=== PATIENT | female | born 1990 | race Caucasian/White ===

== ENCOUNTER 2019-01-22 02:03 | Emergency (ER) | payer BC, OTHER ==
[~2019-01-22] VITALS: Ht 167.6 cm; Wt 56.7 kg
--- NOTE | 2019-01-22 02:27 | ED General ---
General Chief Complaint: Overdose Stated Complaint: OVER DOSE History of Present Illness Date Seen by Provider: Jan 22, 2019 Time Seen by Provider: 02:21 Initial Comments Patient presents emergency department for evaluation of overdose of Tylenol and Benadryl. She said that she was in an argument with her and wanted to go to sleep so she took both medications at 1:30 in the morning. She says that it was 15 Tylenol tablets that she does not know dose of in addition to 15 Benadryl tablets that she does not know the dose to either. These are approximate amounts that she said it was a handful. I asked her if she did this in an attempt to kill herself and she said no she simply wanted to go to sleep. Asked her if she has hurt herself before in the past and had suicide attempts and she said no but she did used to cut. She takes an antidepressant sertraline in addition to control but did not take these medications and she also denies taking any alcohol or drugs. Her vital signs are normal and she is in no obvious distress. (KOURTNEY BORGES DO) Allergies and Home Medications Allergies Coded Allergies: No Known Drug Allergies (Unverified , 01/22/19) Patient Home Medication List Home Medication List Reviewed: Yes (KOURTNEY BORGES DO) Review of Systems Review of Systems Constitutional: No fever EENTM: No blurred vision Respiratory: No short of breath Cardiovascular: No chest pain Gastrointestinal: No nausea, No vomiting Musculoskeletal: No joint pain Skin: No rash Psychiatric/Neurological: Denies Headache, Denies Numbness (KOURTNEY BORGES DO) All Other Systems Reviewed Negative Unless Noted: Yes (KOURTNEY BORGES DO) Past Pjiuryo-Gmcitx-Neweyk Hx Patient Social History Recent Foreign Travel: No Contact w/Someone Who Travel: No (KOURTNEY BORGES DO) Physical Exam Vital Signs Vital Signs - First Documented 01/22/19 02:14 Temp 97.9 Pulse 98 Resp 16 B/P (MAP) 107/66 (80) O2 Delivery Room Air (ANA CORONEL DO) Vital Signs Capillary Refill : (KOURTNEY BORGES DO) Height, Weight, BMI Height: '" Weight: lbs. oz. kg; BMI Method: General Appearance: No Apparent Distress, WD/WN HEENT: PERRL/EOMI, TMs Normal Neck: Supple Respiratory: Normal Breath Sounds, No Respiratory Distress Cardiovascular: Regular Rate, Rhythm, No Edema Gastrointestinal: Non Tender, Soft Back: Normal Inspection Extremity: Normal Capillary Refill, Normal Inspection Neurologic/Psychiatric: Alert, Oriented x3 Skin: Normal Color, Warm/Dry (KOURTNEY BORGES DO) Progress/Results/Core Measures Suspected Sepsis SIRS Temperature: Pulse: Respiratory Rate: Laboratory Tests 01/22/19 02:24: White Blood Count 4.7 Blood Pressure / Mean: Laboratory Tests 01/22/19 02:24: Creatinine 0.83, Platelet Count 158, Total Bilirubin 0.2 01/22/19 05:25: (KOURTNEY BORGES [facility]) Results/Orders Lab Results Laboratory Tests Test 01/22/19 02:24 01/22/19 03:15 01/22/19 05:25 Range/Units White Blood Count 4.7 4.3-11.0 10^3/uL Red Blood Count 4.06 L 4.35-5.85 10^6/uL Hemoglobin 11.9 11.5-16.0 G/DL Hematocrit 37 35-52 % Mean Corpuscular Volume 91 80-99 FL Mean Corpuscular Hemoglobin 29 25-34 PG Mean Corpuscular Hemoglobin Concent 32 32-36 G/DL Red Cell Distribution Width 12.9 10.0-14.5 % Platelet Count 158 130-400 10^3/uL Mean Platelet Volume 10.2 7.4-10.4 FL Neutrophils (%) (Auto) 40 L 42-75 % Lymphocytes (%) (Auto) 51 H 12-44 % Monocytes (%) (Auto) 8 0-12 % Eosinophils (%) (Auto) 1 0-10 % Basophils (%) (Auto) 0 0-10 % Neutrophils # (Auto) 1.9 1.8-7.8 X 10^3 Lymphocytes # (Auto) 2.4 1.0-4.0 X 10^3 Monocytes # (Auto) 0.4 0.0-1.0 X 10^3 Eosinophils # (Auto) 0.1 0.0-0.3 10^3/uL Basophils # (Auto) 0.0 0.0-0.1 10^3/uL Sodium Level 140 141 135-145 MMOL/L Potassium Level 3.5 L 3.9 3.6-5.0 MMOL/L Chloride Level 101 108 H 98-107 MMOL/L Carbon Dioxide Level 21 18 L 21-32 MMOL/L Anion Gap 18 H 15 H 5-14 MMOL/L Blood Urea Nitrogen 14 10 7-18 MG/DL Creatinine 0.83 0.70 0.60-1.30 MG/DL Estimat Glomerular Filtration Rate > 60 > 60 BUN/Creatinine Ratio 17 14 Glucose Level 102 75 70-105 MG/DL Calcium Level 9.6 7.8 L 8.5-10.1 MG/DL Corrected Calcium 8.0 L 8.5-10.1 MG/DL Magnesium Level 1.9 1.8-2.4 MG/DL Total Bilirubin 0.2 < 0.2 0.1-1.0 MG/DL Aspartate Amino Transf (AST/SGOT) 13 10 5-34 U/L Alanine Aminotransferase (ALT/SGPT) 11 9 0-55 U/L Alkaline Phosphatase 26 L 21 L 40-136 U/L Total Protein 7.7 6.1 L 6.4-8.2 GM/DL Albumin 4.6 H 3.7 3.2-4.5 GM/DL Salicylates Level < 0.3 L 5.0-20.0 MG/DL Acetaminophen Level 71 *H 48 #*H 10-30 UG/ML Serum Alcohol < 10 <10 MG/DL Urine Color YELLOW Urine Clarity CLEAR Urine pH 6.0 5-9 Urine Specific Beverly 1.025 H 1.016-1.022 Urine Protein NEGATIVE NEGATIVE Urine Glucose (UA) NEGATIVE NEGATIVE Urine Ketones NEGATIVE NEGATIVE Urine Nitrite NEGATIVE NEGATIVE Urine Bilirubin NEGATIVE NEGATIVE Urine Urobilinogen 0.2 NORMAL MG/DL Urine Leukocyte Esterase NEGATIVE NEGATIVE Urine RBC (Auto) NEGATIVE NEGATIVE Urine RBC NONE /HPF Urine WBC 0-2 /HPF Urine Squamous Epithelial Cells 5-10 /HPF Urine Crystals NONE /LPF Urine Bacteria TRACE /HPF Urine Casts NONE /LPF Urine Mucus NONE /LPF Urine Culture Indicated NO Urine Test NEGATIVE NEGATIVE Urine Opiates Screen NEGATIVE NEGATIVE Urine Oxycodone Screen NEGATIVE NEGATIVE Urine Methadone Screen NEGATIVE NEGATIVE Urine Propoxyphene Screen NEGATIVE NEGATIVE Urine Barbiturates Screen NEGATIVE NEGATIVE Ur Tricyclic Antidepressants Screen NEGATIVE NEGATIVE Urine Phencyclidine Screen NEGATIVE NEGATIVE Urine Amphetamines Screen NEGATIVE NEGATIVE Urine Methamphetamines Screen NEGATIVE NEGATIVE Urine Benzodiazepines Screen NEGATIVE NEGATIVE Urine Cocaine Screen NEGATIVE NEGATIVE Urine Cannabinoids Screen NEGATIVE NEGATIVE (ANA CORONEL DO) Medications Given in ED Current Medications Medications Dose Ordered Sig/Roderick Route Start Time Stop Time Status Last Admin Dose Admin Charcoal 50 gm ONCE ONCE PO 01/22/19 02:30 01/22/19 02:31 DC 01/22/19 02:40 50 GM Ondansetron HCl 4 mg ONCE ONCE IVP 01/22/19 02:30 01/22/19 02:31 DC 01/22/19 02:40 4 MG Potassium Chloride 20 meq ONCE ONCE PO 01/22/19 03:15 01/22/19 03:16 DC 01/22/19 03:05 20 MEQ Sodium Chloride 1,000 ml ONCE ONCE IV 01/22/19 02:30 01/22/19 02:31 DC 01/22/19 02:40 1,000 ML Sodium Chloride 1,000 ml ONCE ONCE IV 01/22/19 03:00 01/22/19 03:01 DC 01/22/19 03:38 1,000 ML (ANA CORONEL DO) Vital Signs/I&O 01/22/19 02:14 Temp 97.9 Pulse 98 Resp 16 B/P (MAP) 107/66 (80) O2 Delivery Room Air (ANA CORONEL DO) Vital Signs/I&O Capillary Refill : (KOURTNEY BORGES DO) Progress Note : Time: 02:24 Progress Note I spoke to poison control and they recommended benzos for possible anticholinergic side affects and repeat Tylenol level at 4 hours. Patient is within 1 hour of ingestion so she will be given activated charcoal. 0600: Awaiting repeat tylenol and cmp. If negative patient will be considered medically cleared from my standpoint as she has had no symptoms over her 3+ hours here and her VS have not changed. No s/s of anticholinergic toxicity. Patient will need psych screen if she does not require admit for tylenol OD. Transfer of care to Dr. Coronel at 0600, awaiting lab results. Tylenol level at 48 so she is medically cleared. Psych will screen her now. (KOURTNEY BORGES DO) Progress Note : Progress Note Davis addendum: Mani from [facility] recommends pt can be cleared for outpatient followup since she does not want to harm herself and she has followup with that group already set up. Pt would like to go home and feels well. (ANA CORONEL DO) Departure Impression Primary Impression: Drug overdose Disposition: 01 HOME, SELF-CARE Condition: Stable Departure-Patient Inst. Referrals: NO,LOCAL PHYSICIAN (PCP/Family) Primary Care Physician Patient Instructions: ALCOHOL AND SUBSTANCE ABUSE, Accidental Overdose KOURTNEY BORGES DO Jan 22, 2019 02:27 ANA CORONEL DO Jan 22, 2019 07:35
[2019-01-22 02:30] LABS: WHITE BLOOD COUNT 4.7 10^3/uL (4.3-11.0)
[2019-01-22] MEDS ORDERED: ONDANSETRON 4 MG/2 ML (SDV) Z0FRAN IVP ONE (02:30)
[2019-01-22] MEDS ORDERED: NS 1000 ML IV BAG IV ONE ×2 (02:30→03:00)
[2019-01-22] MEDS ORDERED: CHARCOAL/AQUEOUS 50 GM/240 ML BTL PO ONE (02:30)
[2019-01-22 02:31] LABS: BASOPHILS % (AUTO) 0 % (0-10); EOSINOPHILS % (AUTO) 1 % (0-10); HEMATOCRIT 37 % (35-52); HEMOGLOBIN 11.9 G/DL (11.5-16.0); LYMPHOCYTES % (AUTO) 51 % (12-44); MEAN CORPUSCULAR HEMOGLOBIN 29 PG (25-34); MEAN CORPUSCULAR HGB CONC 32 G/DL (32-36); MEAN CORPUSCULAR VOLUME 91 FL (80-99); MEAN PLATELET VOLUME 10.2 FL (7.4-10.4); MONOCYTES % (AUTO) 8 % (0-12); NEUTROPHILS % (AUTO) 40 % (42-75); PLATELET COUNT 158 10^3/uL (130-400); RED CELL DISTRIBUTION WIDTH 12.9 % (10.0-14.5)
[2019-01-22 02:32] LABS: EOSINOPHILS # (AUTO) 0.1 10^3/uL (0.0-0.3); LYMPHOCYTES # (AUTO) 2.4 X 10^3 (1.0-4.0); MONOCYTES # (AUTO) 0.4 X 10^3 (0.0-1.0); NEUTROPHILS # (AUTO) 1.9 X 10^3 (1.8-7.8)
--- NOTE | 2019-01-22 02:51 | NUR ---
PT. REPORTED THAT SHE TOOK APPROX. 15 BENADRYL UNKNOWN DOSE AND 15 TYLENOL UNKNOWN DOSE BECAUSE SHE HAS ALLERGYS AND HAD TAKEN A DOSE OF BENADRYL PRIOR TO GOING TO BED SHE ALSO HAD TAKEN TYLENOL BUT THEN SHE AND HER STARTED FIGHTING SO THE BENADRYL AND TYLENOL WAS NOT WORKING SO SHE TOOK SOME MORE AND BY THE 3RD TIME OF TAKING THE TYLENOL AND THE BENADRYL IT WAS NOT WORKING. PATIENT REPORTED THAT SHE WAS NOT ATTEMPTING TO KILL HERSELF SHE WAS JUST TRYING TO GET SOME SLEEP.
[2019-01-22 02:54] LABS: CARBON DIOXIDE 21 MMOL/L (21-32); CHLORIDE 101 MMOL/L (98-107); POTASSIUM 3.5 MMOL/L (3.6-5.0); SODIUM 140 MMOL/L (135-145)
[2019-01-22 02:55] LABS: ALANINE AMINOTRANSFERASE 11 U/L (0-55); ALBUMIN 4.6 GM/DL (3.2-4.5); ALKALINE PHOSPHATASE 26 U/L (40-136); BILIRUBIN,TOTAL 0.2 MG/DL (0.1-1.0); BUN/CREATININE RATIO 17; CALCIUM 9.6 MG/DL (8.5-10.1); CREATININE SERUM 0.83 MG/DL (0.60-1.30); GFR ESTIMATED > 60; GLUCOSE 102 MG/DL (70-105); MAGNESIUM 1.9 MG/DL (1.8-2.4); SALICYLATE < 0.3 MG/DL (5.0-20.0); TOTAL PROTEIN 7.7 GM/DL (6.4-8.2)
[2019-01-22 02:57] LABS: ACETAMINOPHEN 71 UG/ML (10-30)
[2019-01-22] MEDS ORDERED: KCL 20 MEQ TAB (K-DUR) PO ONE (03:15)
[2019-01-22 03:28] LABS: HCG,QUALITATIVE URINE NEGATIVE (NEGATIVE)
--- NOTE | 2019-01-22 03:31 | NUR ---
IS AT THE BEDSIDE.
[2019-01-22 03:34] LABS: BILIRUBIN,URINE NEGATIVE (NEGATIVE); CLARITY,URINE CLEAR; COLOR,URINE YELLOW; GLUCOSE, URINE (UA) NEGATIVE (NEGATIVE); KETONES,URINE NEGATIVE (NEGATIVE); LEUKOCYTE ESTERASE ,URINE NEGATIVE (NEGATIVE); NITRITE,URINE NEGATIVE (NEGATIVE); PROTEIN,URINE NEGATIVE (NEGATIVE); UROBILINOGEN,URINE 0.2 MG/DL (NORMAL)
[2019-01-22 03:35] LABS: BACTERIA,URINE TRACE /HPF; WBC,URINE 0-2 /HPF
[2019-01-22 03:37] LABS: AMPHETAMINE SCREEN, URINE NEGATIVE (NEGATIVE); BARBITURATE SCREEN URINE NEGATIVE (NEGATIVE); BENZODIAZEPINES SCREEN URINE NEGATIVE (NEGATIVE); CANNABINOID SCREEN, URINE NEGATIVE (NEGATIVE); COCAINE SCREEN URINE NEGATIVE (NEGATIVE); METHADONE STAT NEGATIVE (NEGATIVE); METHAMPHETAMINE SCREEN URINE S NEGATIVE (NEGATIVE); OPIATE SCREEN URINE NEGATIVE (NEGATIVE); OXYCODONE STAT NEGATIVE (NEGATIVE); PROPOXYPHENE STAT NEGATIVE (NEGATIVE); TRICYCLIC ANTIDEPRESSANTS SCRE NEGATIVE (NEGATIVE)
--- NOTE | 2019-01-22 05:15 | NUR ---
PT. UP TO THE BATHROOM AT THIS TIME.
--- NOTE | 2019-01-22 05:43 | NUR ---
DOCTOR IN TO SEE THE PATIENT.
[2019-01-22 05:58] LABS: ALANINE AMINOTRANSFERASE 9 U/L (0-55); ALKALINE PHOSPHATASE 21 U/L (40-136); BILIRUBIN,TOTAL < 0.2 MG/DL (0.1-1.0); BUN/CREATININE RATIO 14; CALCIUM 7.8 MG/DL (8.5-10.1); CARBON DIOXIDE 18 MMOL/L (21-32); CHLORIDE 108 MMOL/L (98-107); GFR ESTIMATED > 60; GLUCOSE 75 MG/DL (70-105); POTASSIUM 3.9 MMOL/L (3.6-5.0); SODIUM 141 MMOL/L (135-145); TOTAL PROTEIN 6.1 GM/DL (6.4-8.2)
--- NOTE | 2019-01-22 05:58 | NUR ---
2ND EKG RECEIVED AND DOCTOR HAS SEEN IT. NO CHANGE IN THE EKG FROM PREVIOUS EKG.
[2019-01-22 05:59] LABS: ALBUMIN 3.7 GM/DL (3.2-4.5)
[2019-01-22 06:02] LABS: ACETAMINOPHEN 48 UG/ML (10-30)
--- NOTE | 2019-01-22 06:12 | NUR ---
MENTAL HEALTH NOTIFIED OF NEED FOR EVALUATION. POISON CONTROL CALLED AND CLEARED PATIENT.
[2019-01-22] MEDS ORDERED: SERTRALINE 50MG TABLETS (06:30)
[2019-01-22] MEDS ORDERED: TRI SPRINTEC (06:30)
[2019-01-22 07:35] VITALS: BP 90/59
[2019-01-22 07:56] VITALS: BP 90/59
== END 2019-01-22 07:56 | disposition home or self-care (01) ==
LOC: ER FS 02:07
DX: T39.1X1A Poisoning by 4-Aminophenol derivatives, accidental (unintentional), initial encounter (principal); T45.0X1A Poisoning by antiallergic and antiemetic drugs, accidental (unintentional), initial encounter
CPT/HCPCS: 36415; 80053; 80306; 80320; 80329; 81000; 83735; 84703; 85025; 93005

== ENCOUNTER 2021-04-25 18:07 | Day surgery (SDC) | payer BC ==
[2021-04-25] VITALS (11 sets, daily range): BP systolic 89–140; BP diastolic 58–88
[~2021-04-25] VITALS: Ht 167.7 cm; Wt 59.0 kg
[~2021-04-25 18:07] MED LIST changes: -ACHD5005 PO; -CATHETER FLUSH 10 ML SYR IV PRN; -DOCU-143 PO; -HOLD METFORMIN - RECEIVED CONTRAST 20 ML VIAL IV SCH; -IOHEXOL 350 MG/ML 100 ML (OMNIPAQUE 350) VIAL IV ONE; -NS 100 ML (IVPB) BAG IV ONE
[2021-04-25] MEDS ORDERED: metroNIDAZOLE 500MG/100ML IVPB 100 ML ONE (18:38)
[2021-04-25] MEDS ORDERED: ceFAZolin INJECTION 1,000 MG ONE (18:38)
[2021-04-25] MEDS ORDERED: WATER (STERILE) FOR INJECTION 10 ML ONE (18:38)
[2021-04-25] MEDS ORDERED: LACTATED RINGERS 1,000 ML IV ONE (18:39)
--- NOTE | 2021-04-25 18:49 | History & Physical-Surgical ---
History of Present Illness History of Present Illness Reason for visit/HPI CC: RLQ abdominal pain. 2 days of lower abdominal pain that moved to right lower quadrant. Pain constant, no radiation. Moderate to severe. Movement makes worse. Nothing really making better. Having nausea, no emesis. Had ct scan performed at outside facility reporting acute appendicitis. Date of Admission Apr 25, 2021 at 18:07 Date Seen by a Provider: Apr 25, 2021 Time Seen by a Provider: 18:43 I consulted on this patient on 04/25/21 18:43 Attending Physician Ana Rosa Marrero DO Admitting Physician Harmony Ramirez MD Consult Allergies and Home Medications Allergies Coded Allergies: No Known Drug Allergies (Unverified , 01/22/19) Patient Home Medication List Home Medication List Reviewed: Yes Past Uoueomh-Dnytww-Cqaogy Hx Patient Social History Drug of Choice: none Smoking Status: Never a Smoker Recent Hopitalizations: No Alcohol Use?: No Have you traveled recently?: No Surgeries History of Surgeries: Yes (tumor for lip removed.) Respiratory History of Respiratory Disorde: No Cardiovascular History of Cardiac Disorders: No Neurological History of Neurological Disord: No Reproductive System : No Genitourinary History of Genitourinary Disor: No Gastrointestinal History of Gastrointestinal Di: No Musculoskeletal History of Musculoskeletal Dis: No Endocrine History of Endocrine Disorders: No HEENT History of HEENT Disorders: No Loss of Vision: Denies Cancer History of Cancer: No Psychosocial History of Psychiatric Problem: No Integumentary History of Skin or Integumenta: No Reviewed Nursing Assessment Reviewed/Agree w Nursing PMH: Yes Family Medical History Significant Family History: No Pertinent Family Hx Review of Systems Constitutional: No chills, No diaphoresis; fever (subjective) EENTM: No blurred vision, No double vision Respiratory: No cough, No dyspnea on exertion Cardiovascular: No chest pain, No palpitations Gastrointestinal: abdominal pain (RLQ), nausea; No vomiting Genitourinary: No decreased output, No discharge Musculoskeletal: No back pain, No joint pain Skin: No change in color, No change in hair/nails Psychiatric/Neurological: Denies Anxiety, Denies Depressed, Denies Emotional Problems All Other Systems Reviewed Negative Unless Noted: Yes (Negative excepted noted.) Physical Exam Vital Signs Vital Signs - First Documented 04/25/21 18:20 Temp 36.3 Pulse 64 Resp 20 B/P (MAP) 140/63 (88) Pulse Ox 97 O2 Delivery Room Air Capillary Refill : Height, Weight, BMI Height: 5'6.00" Weight: 125lbs. oz. 56.750985vx; 13.86 BMI Method:Stated General Appearance: No Apparent Distress, WD/WN HEENT: PERRL/EOMI, Normal ENT Inspection Neck: Normal Inspection, Non Tender Respiratory: Chest Non Tender, No Accessory Muscle Use, No Respiratory Distress Cardiovascular: Regular Rate, Rhythm, No JVD Gastrointestinal: Soft, Tenderness (rlq) Rectal: Deferred Back: No CVA Tenderness, No Vertebral Tenderness Extremity: Normal Inspection, Normal Range of Motion, Non Tender, No Calf Tenderness Neurologic/Psychiatric: Alert, Oriented x3, No Motor/Sensory Deficits, Normal Mood/Affect, administrative technician II-XII Norm as Tested Skin: Normal Color, Warm/Dry Lymphatic: No Adenopathy Data Review Labs Laboratory Tests 04/25/21 18:30: Assessment/Plan Assessment/Plan Admission Diagonsis rlq abdominal pain nausea acute appendicitis Admission Status: Other (Same Day Surgery) Assessment/Plan rlq abdominal pain nausea acute appendicitis we discussed risks and benefits of laparoscopic appendectomy all other indicated procedures. patient understands along with and wish to proceed. to or Ancef 1 gram and flagyl 500 preop npo iv fluids ANA ROSA MARRERO DO Apr 25, 2021 18:49
[2021-04-25] MEDS ORDERED: fentaNYL INJ 100 MCG/2 ML AMP ONE (19:10)
[2021-04-25] MEDS ORDERED: MIDAZOLAM 2 MG/2 ML (VERSED) VIAL ONE (19:11)
[2021-04-25] MEDS ORDERED: morphine INJ 10 MG/ML 1ML (SYR OR VIAL) ONE (19:39)
[2021-04-25] MEDS ORDERED: ROCURONIUM 10 MG/ML 5 ML SYRINGE IV ONE (19:45)
[2021-04-25] MEDS ORDERED: proPOfol 200 MG/20 ML (DIPRIVAN) VIAL IV ONE (19:45)
[2021-04-25] MEDS ORDERED: GLYCOPYRROLATE 0.2 MG/ML (ROBINUL) 2 ML VIAL ONE (19:45)
[2021-04-25] MEDS ORDERED: ONDANSETRON 4 MG/2 ML (SDV) Z0FRAN ONE (19:45)
[2021-04-25] MEDS ORDERED: NEOSTIGMINE 3 MG/3 ML VIAL ONE (19:45)
[2021-04-25] MEDS ORDERED: LIDOCAINE PF 2% 5 ML (XYLOCAINE) VIAL ONE (19:45)
[2021-04-25] MEDS ORDERED: SUCCINYLCHOLINE INJ 100 MG/5 ML SYR/VIAL ONE (19:45)
[2021-04-25] MEDS ORDERED: SEVOFLURANE (ULTANE) 15 ML INHAL SOLN ONE (19:45)
[2021-04-25] MEDS ORDERED: MEPERIDINE (DEMEROL) INJ 50 MG/ML ONE (20:01)
[2021-04-25] MEDS ORDERED: ACHD5005 PO (20:11)
[2021-04-25] MEDS ORDERED: DOCU-143 PO (20:11)
--- NOTE | 2021-04-25 20:12 | Discharge Inst-Simple/Standard ---
Discharge Inst-Standard Discharge Medications New, Converted or Re-Newed RX: Other (Patient given pain medication by PCP. Patient can get stool softener over the counter.) Patient Instructions/Follow Up Plan of Care/Instructions/FU: 2 weeks Elida Activity as Tolerated: No Discharge Diet: Regular Diet Other Inst to Patient Follow up Appt: Make appointment for 2 week. Instructions: No lifting greater than 10 pounds. No strenuous activity. May shower in 24 hours, no tub bath or soaking. Use incentive spirometer at home as directed. No Smoking Skin/Wound Care: You have special glue over your incision that will fall off on it's own. Symptoms to Report: Appetite Changes, Extremity Discoloration, Numbness/Tingling, Swelling Increased, Bleeding Excessive, Eyesight Changes, Pain Increased, Urine Color Change, Constipation(Persistent), Fever over 101 degree F, Pain/Pressure in chest, Urinating Difficulty, Cough Up/Vomit Blood, Heart Beat Irreg/Pounding, Pain/Pressure in jaw, Vaginal Bleeding Increase, Cramps in feet or legs, Lightheadedness, Pain/Pressure in shoulder, Diarrhea(Persistent), Memory Changes Suddenly, Questions/Concerns, Weight gain consecutive days, Dizziness/Fainting, Nausea/Vomiting, Shortness of Breath, Weight gain over 2 pounds If questions or concerns contact your physician Or seek help at emergency department. ANA RSOA BRUNER DO Apr 25, 2021 20:12
--- NOTE | 2021-04-25 20:14 | Progress Note-Post Operative ---
Post-Operative Progess Note Surgeon (s)/Supervisor Vacuum Metalizing (s) Surgeon ANA ROSA BRUNER DO Supervisor Vacuum Metalizing: na Pre-Operative Diagnosis rlq abdominal pain, nausea, acute appendicitis Post-Operative Diagnosis same Procedure & Operative Findings Date of Procedure 04/25/21 Procedure Performed/Findings PROCEDURE: Laparoscopic appendectomy. COMPLICATIONS: None. INDICATIONS: The patient is a 30 year old female who has been having right lower quadrant abdominal pain. Patient's exam consistent with appendicitis. I discussed risk and benefits of laparoscopic appendectomy and all indicated procedures with the possibility being a normal appendix. The patient understands the risks and benefits and wishes to proceed. Consent was signed on the chart. DESCRIPTION OF PROCEDURE: The patient was taken to the operating suite, prepped and draped in a sterile fashion. Timeout was performed. Local anesthetic was infiltrated just above the umbilicus and 11-blade scalpel was used to make a skin incision. Cautery was used to dissect down to the fascia and scored. Kochers were used to grasp and elevate it and the abdomen was then entered. A 0 Vicryl was placed in a [id number] fashion for closure at the end of the case. The balloon trocar was inserted into the abdomen and pneumoperitoneum was achieved. Under direct visualization of the laparoscope, a 5 mm trocar was placed in the suprapubic region and a 5 mm trocar was placed in the left lower quadrant. Appendix was located, Dilated, slightly inflamed appendix. Some adhesions around it. The base of the appendix was dissected around. Once at the base an Endo-MEMO 2.5 stapler was then fired across the base of the appendix. The mesoappendix was then divided. It was then placed in an Endobag and removed through the 12 mm trocar site. The abdomen was then irrigated and suctioned. No other pathology noted. The abdomen was then desufflated and the trocars were removed. The 0 Vicryl placed at the beginning of the case was then tied closing the 12 mm fascial defect. The skin was then closed using 4-0 Monocryl in a subcuticular fashion. The abdomen was then washed and dried and Skin Affix was placed over the incisions. The patient tolerated the procedure well without any complications and was taken to the recovery room in stable condition. Anesthesia Type general Estimated Blood Loss Estimated blood loss (mL): minimal Specimens/Packing Specimens Removed appendix ANA ROSA BRUNER DO Apr 25, 2021 20:14
[2021-04-25] MEDS ORDERED: HYDROcodone/APAP 5 MG/325 MG (LORTAB) TAB PO ONE (22:15)
--- NOTE | 2021-04-25 23:48 | Anesthesia-General Post-Op ---
General Patient Condition Mental Status/LOC: Same as Preop Cardiovascular: Satisfactory Nausea/Vomiting: Absent Respiratory: Satisfactory Pain: Controlled Complications: Absent Post Op Complications Complications None Follow Up Care/Instructions Patient Instructions None needed. Anesthesia/Patient Condition Patient Condition Patient is doing well, no complaints, stable vital signs, no apparent adverse anesthesia problems. No complications reported per nursing. SALMA LITTLE CRNA Apr 25, 2021 23:48
== END 2021-04-25 22:36 | disposition home or self-care (01) ==
LOC: 4TH 18:07 → UNDOADMOB 18:07 → SDC 18:07 → 4TH 18:07 → UNDODISOB 22:36 → SDC 22:36
PROVIDERS: ATTEND Surgery
DX: K35.80 Unspecified acute appendicitis (principal); F32.9 Major depressive disorder, single episode, unspecified; Z79.899 Other long term (current) drug therapy
CPT/HCPCS: 84703; 87081; 87636; 88304

== ENCOUNTER → 2021-04-25 | Outpatient (CLI) | payer BC ==
[~2021-04-25] MED LIST: ACHD5005 PO; CATHETER FLUSH 10 ML SYR IV PRN; DOCU-143 PO; HOLD METFORMIN - RECEIVED CONTRAST 20 ML VIAL IV SCH; IOHEXOL 350 MG/ML 100 ML (OMNIPAQUE 350) VIAL IV ONE; NS 100 ML (IVPB) BAG IV ONE; SERTRALINE 50MG TABLETS; TRI SPRINTEC
--- NOTE | 2021-04-25 10:18 | Diagnostic Imaging Report ---
PROCEDURE: CT abdomen and pelvis with contrast. TECHNIQUE: Multiple contiguous axial images were obtained through the abdomen and pelvis after administration of intravenous contrast. Auto Exposure Controls were utilized during the CT exam to meet ALARA standards for radiation dose reduction. All CT scans use one or more of the following dose optimizing techniques: automated exposure control, MA and/or KvP adjustment based on patient size and exam type or iterative reconstruction. INDICATION: Right lower quadrant pain. History of cervical cancer. COMPARISON: None FINDINGS: The lung bases are clear. The heart is normal in size. There is no pericardial effusion. The liver demonstrates no focal lesions. The spleen appears normal. The pancreas is normal. The adrenal glands appear normal. The kidneys demonstrate no focal lesions. The appendix is enlarged and fluid filled with surrounding edema and with wall enhancement. The appendix measures 8 mm wide. There is a small amount of free fluid in the pelvis. No free air or drainable fluid collection is seen. The bowel loops are nondistended without obstruction. There is moderate stool in the colon. No acute osseous abnormality is seen. IMPRESSION: 1. Acute appendicitis. Small amount of free fluid without free air or walled off fluid collection. Dictated by: Dictated on workstation # [id number]
== END ==
LOC: RAD FS 09:13
PROVIDERS: ATTEND Nurse Practitioner Family
DX: K35.33 Acute appendicitis with perforation, localized peritonitis, and gangrene, with abscess (principal)
CPT/HCPCS: 74177